=== PATIENT | male | born 1955 | race Caucasian/White ===

== ENCOUNTER 2017-12-07 16:43 | Emergency (ER) | payer SELFPAY ==
[~2017-12-07] VITALS: Ht 180.3 cm; Wt 98.0 kg
[~2017-12-07 16:43] MED LIST: ADVA100A; ALBU17I INH; ALBU1AER INH; ASPI81 PO; CLOP75 PO; COMBAER INH; EZET10 PO; IMDU30TA PO; IPRA0.02 INH; NIAS10004 PO; NITR0.4S SL; PRAV40TA PO; PRED50 PO; PRIL40CA PO; PRIN5TAB PO; TUSSSUS PO; ZITH250T PO
[2017-12-07 16:44] VITALS: BP 144/69; PULSE 81; RESP 17; TEMP 98.3; O2SAT 96
[2017-12-07] MEDS ORDERED: predniSONE 20 MG TAB PO ONE (17:00)
[2017-12-07] MEDS ORDERED: KETOROLAC TROMETHAMINE 60 MG/2 ML (IM) VIAL IM ONE (17:00)
--- NOTE | 2017-12-07 17:07 | PD ---
HPI Chief Complaint: Pain: Acute or Chronic Time Seen by Provider: 16:51 Travel History International Travel<30 days: No Contact w/Intl Traveler<30days: No Traveled to known affect area: No History of Present Illness HPI 62-year-old male presents emergency department with several day history of worsening right-sided knee pain and swelling. Patient denies any specific injury. He states his pain is progressively worsened over the past 2 days, to the point of having difficulty ambulating. Patient denies fever, chills, abrasions or open wounds. Pain is 9 out of 10 and worse with movement or palpation. No history of gout. No known drug allergies. PFSH Past Medical History Arthritis: Yes Asthma: No Autoimmune Disease: Yes Blood Disorders: No Heart Rhythm Problems: No Cancer: No Cardiac Catheterization: Yes Cardiovascular Problems: Yes High Cholesterol: No Chemotherapy: No Chest Pain: Yes Congestive Heart Failure: No COPD: No Cerebrovascular Accident: No Coronary Artery Disease: Yes Dementia: No Developmental Delay: Yes Diminished Hearing: No Endocrine: No Gastrointestinal Disorders: Yes GERD: Yes Glaucoma: No Genitourinary: No Headaches: No Hepatitis: Yes (HEP C ) Hiatal Hernia: No Hypertension: Yes Immune Disorder: No Implanted Vascular Access Dvce: Yes Kidney Stones: Yes Musculoskeletal: Yes Neurologic: No Psychiatric: No Reproductive: No Respiratory: Yes Migraines: No Myocardial Infarction: No Radiation Therapy: No Renal Failure: No Seizures: No Sickle Cell Disease: No Sleep Apnea: Yes (POSSIBLE STATED BY "HE STOPS BREATHING IN HIS SLEEP SOMETIMES") Thyroid Disease: No Ulcer: Yes Past Surgical History Abdominal Surgery: No AICD: No Appendectomy: No Arteriovenous Shunt: No Cardiac Surgery: No Cholecystectomy: No Coronary Artery Bypass Graft: No Ear Surgery: No Endocrine Surgery: No Eye Surgery: No Genitourinary Surgery: Yes (VASECTOMY) Gynecologic Surgery: No Insulin Pump: No Joint Replacement: Yes (L HIP REPLACEMENT) Oral Surgery: No Pacemaker: No Thoracic Surgery: No Other Surgery: Yes (LEFT GROIN HERNIA) Social History Alcohol Use: Yes (1 BEER PER WEEK) Tobacco Use: Yes Substance Use: Yes Allergies-Medications (Allergen,Severity, Reaction): Coded Allergies: No Known Allergies (Verified Adverse Reaction, Unknown, 12/07/17) Reported Meds & Prescriptions Reported Meds & Active Scripts Active Prednisone 20 Mg Tab 20 Mg PO BID 7 Days Review of Systems Except as stated in HPI: all other systems reviewed are Neg General / Constitutional: No: Fever Eyes: No: Visual changes HENT: No: Headaches Cardiovascular: No: Chest Pain or Discomfort Respiratory: No: Shortness of Breath Gastrointestinal: No: Abdominal Pain Genitourinary: No: Dysuria Musculoskeletal: Positive: Arthralgias, Limited ROM, Pain Skin: No Rash Neurologic: No: Weakness Psychiatric: No: Depression Endocrine: No: Polydipsia Hematologic/Lymphatic: No: Easy Bruising Physical Exam Narrative GENERAL: Patient appears in mild to moderate distress SKIN: Warm and dry. Normal color. Normal turgor. No erythema or increased warmth noted HEAD: Atraumatic. Normocephalic. EYES: Pupils equal and round. No scleral icterus. No injection or drainage. ENT: No nasal bleeding or discharge. Mucous membranes pink and moist. Pharynx is clear. Airways patent. NECK: Trachea midline. Supple and nontender CARDIOVASCULAR: Regular rate and rhythm. RESPIRATORY: No accessory muscle use. Clear to auscultation. Breath sounds equal bilaterally. GASTROINTESTINAL: Abdomen soft, non-tender, nondistended. Hepatic and splenic margins not palpable. MUSCULOSKELETAL: Extremities without clubbing, cyanosis, or edema. No obvious deformities. Patient has an obvious effusion to the right knee mainly in the suprapatellar aspect. He has generalized tenderness more on the medial aspect than lateral. Exam is greatly limited secondary to patient's symptoms. Neurovascular exam distally on the right lower leg is normal. NEUROLOGICAL: Awake and alert. No obvious cranial nerve deficits. Motor grossly within normal limits. Five out of 5 muscle strength in the arms and legs. Normal speech. PSYCHIATRIC: Appropriate mood and affect; insight and judgment normal. Data Data Last Documented VS Vital Signs Date Time Temp Pulse Resp B/P (MAP) Pulse Ox O2 Delivery O2 Flow Rate FiO2 12/07/17 16:44 98.3 81 17 144/69 (94) 96 Orders Orders Knee, Complete (4vws) (12/07/17 16:59) Ice/Cold Pack (12/07/17 16:59) Splint Or Brace Apply/Monitor (12/07/17 16:59) Crutches (12/07/17 16:59) Prednisone (Deltasone) (12/07/17 17:00) Ketorolac Inj (Toradol Inj) (12/07/17 17:00) Mandatory Outpatient Referral (12/07/17 18:04) Ed Discharge Order (12/07/17 18:05) [facility] Medical Decision Making Medical Screen Exam Complete: Yes Emergency Medical Condition: Yes Medical Record Reviewed: Yes Differential Diagnosis Right knee effusion. Gouty arthritis. Arthrosis. Narrative Course X-ray of the right knee is ordered. Ice is applied to the affected area. Patient is given 60 mg prednisone p.o. as well as 60 mg Toradol IM. Patient is placed in a knee immobilizer and crutches. X-ray shows: CONCLUSION: 1. Large suprapatellar effusion could be indicative of internal derangement. 2. Mild chondrocalcinosis of the medial and lateral menisci. 3. No fracture. Patient will be continued on prednisone 20 mg twice daily for the next 7 days. Patient to take extra strength Tylenol every 6 hours as directed. Patient is to ice, wear knee immobilizer, use crutches, and follow-up with orthopedic as recommended. Mandatory referral is placed for Dr. Thompson, the orthopedist on-call today. Diagnosis Primary Impression: Knee effusion, right Referrals: Tj Thompson Jr., MD call for appointment [facility] Patient Instructions: Crutch Instructions (ED), General Instructions, Knee Immobilizer (DC), Osteoarthritis (ED), Swollen Knee Joint (ED) Departure Forms: Work Release Special Instructions: Patient is unable to work until cleared by orthopedic. Additional Instructions: Patient is given 60 mg prednisone p.o. as well as 60 mg Toradol IM. Patient is placed in a knee immobilizer and crutches. X-ray shows: CONCLUSION: 1. Large suprapatellar effusion could be indicative of internal derangement. 2. Mild chondrocalcinosis of the medial and lateral menisci. 3. No fracture. Patient will be continued on prednisone 20 mg twice daily for the next 7 days. Patient to take extra strength Tylenol every 6 hours as directed. Patient is to ice, wear knee immobilizer, use crutches, and follow-up with orthopedic as recommended. Mandatory referral is placed for Dr. Thompson, the orthopedist on-call today. Med/Other Pt SpecificInfo: Prescription(s) given Scripts Prednisone (Prednisone) 20 Mg Tab 20 MG PO BID for 7 Days, #14 TAB 0 Refills Prov: Diego Rae MD 12/07/17 Disposition: 01 DISCHARGE HOME Condition: Stable Gamaliel Do Dec 07, 2017 17:07
--- NOTE | 2017-12-07 17:33 | RADRPT ---
EXAM DATE/TIME: 12/07/2017 17:16 [facility] COMPARISON: No previous studies available for comparison. INDICATIONS : Right knee pain, no known injury. MEDICAL HISTORY : None. SURGICAL HISTORY : Cartilage removed from right knee. ENCOUNTER: Initial ACUITY: 2 days PAIN SCORE: 8/10 LOCATION: Right Knee. FINDINGS: Four view examination of the right knee demonstrates no evidence of fracture or dislocation. Bony mi neralization is normal. Early chondrocalcinosis of the medial and lateral menisci. Large suprapatella r effusion. CONCLUSION: 1. Large suprapatellar effusion could be indicative of internal derangement. 2. Mild chondrocalcinosis of the medial and lateral menisci. 3. No fracture. Romeo Wen MD on December 07, 2017 at 17:29 Board Certified Radiologist. This report was verified electronically.
[2017-12-07] MEDS ORDERED: PRED20 PO (18:04)
== END 2017-12-07 18:24 | disposition home or self-care (01) ==
LOC: NEPD 16:43
DX: M25.461 Effusion, right knee (principal); I10 Essential (primary) hypertension; K21.9 Gastro-esophageal reflux disease without esophagitis; Z72.0 Tobacco use; Z87.39 Personal history of other diseases of the musculoskeletal system and connective tissue; Z86.79 Personal history of other diseases of the circulatory system; Z87.19 Personal history of other diseases of the digestive system; Z87.442 Personal history of urinary calculi
CPT/HCPCS: 73564; 96372; 99283; E0113; J1885; J7512; L1830